=== PATIENT | female | born 1950 | race Caucasian/White ===

== ENCOUNTER 2017-08-13 19:29 | Emergency (ER) | payer MEDICARE ==
[~2017-08-13] VITALS: Ht 170.2 cm; Wt 62.2 kg
[2017-08-13 20:26] LABS: HEMOGLOBIN 12.1 g/dl (12.0-16.0); IMMATURE GRANULOCYTES 0.6 % (0.0-1.0); MEAN CORPUSCULAR HGB 32.3 pG CALC (26.0-32.0); MEAN CORPUSCULAR HGB CONC 34.6 g/L CALC (32.0-36.0); NEUT# 8.06 thou/uL (2.00-7.15); RED BLOOD COUNT 3.75 mill/uL (4.20-5.60); RED CELL DISTRI WIDTH 13.5 % (11.5-15.5)
[2017-08-13 20:27] LABS: MEAN CELL VOLUME 93.3 fL CALC (80.0-100.0)
[2017-08-13 20:28] LABS: URINE BILIRUBIN - DIPSTICK NEGATIVE (NEGATIVE); URINE BLOOD DIPSTICK LARGE (NEGATIVE); URINE COLOR YELLOW; URINE GLUCOSE - DIPSTICK NEGATIVE (NEGATIVE); URINE KETONE NEGATIVE (NEGATIVE); URINE NITRITE - DIPSTICK NEGATIVE (Negative); URINE PROTEIN - DIPSTICK TRACE mg/dL (NEG-TRACE); URINE SPECIFIC GRAVITY 1.025
[2017-08-13 20:32] LABS: URINE CLARITY SL CLOUDY; URINE LEUK ESTERASE SMALL (NEGATIVE)
[2017-08-13 20:39] LABS: URINE SQUAMOUS EPITHELIAL CELL MODERATE EPI/hpf (0-FEW)
[2017-08-13 20:41] LABS: INFLUENZA A NONE DETECTED (NONE DETECT); INFLUENZA B NONE DETECTED (NONE DETECT)
[2017-08-13 20:45] LABS: ALBUMIN 3.8 g/dL (3.2-5.0); ALKALINE PHOSPHATASE 66 u/l (38-126); ANION GAP 18 (6-22 (CALC)); BILIRUBIN, TOTAL 0.7 mg/dL (0.0-1.4); BUN 19 mg/dL (8-23); BUN/CREATININE RATIO 26 (12-20 (CALC)); CARBON DIOXIDE 27 mmol/l (22-30); CHLORIDE 101 mmol/l (95-108); CREATININE 0.7 mg/dL (0.5-1.0); GFR > 60 ML/MIN (>=60 (CALC)); GFR FOR AFR.AMER. > 60 ML/MIN (>=60 (CALC)); MAGNESIUM 1.7 mg/dL (1.6-2.3); POTASSIUM 3.6 mmol/l (3.5-5.1); SGOT/AST 31 u/l (9-36); SGPT/ALT 30 u/l (11-66); SODIUM 143 mmol/l (137-146); TOTAL PROTEIN 6.9 g/dL (6.3-8.2)
[2017-08-13 21:16] LABS: PROTHROMBIN TIME 10.7 SECONDS (9.0-12.5)
[2017-08-13] MEDS ORDERED: SUMATRIPTAN25 MG PO (21:25)
[2017-08-13] MEDS ORDERED: ATORVASTATIN CA20 MG PO (21:28)
[2017-08-13] MEDS ORDERED: METOPROL TAR25 MG PO (21:28)
[2017-08-13] MEDS ORDERED: LOSARTAN/HCT1 TA2 PO (21:34)
[2017-08-14 01:12] VITALS: BP 138/76
== END 2017-08-14 01:10 | disposition short-term general hospital (02) ==
LOC: ED 19:29
PROVIDERS: Family Medicine
DX: I26.99 Other pulmonary embolism without acute cor pulmonale (principal); I82.412 Acute embolism and thrombosis of left femoral vein; I82.442 Acute embolism and thrombosis of left tibial vein; R50.9 Fever, unspecified; R53.1 Weakness; N39.0 Urinary tract infection, site not specified; I10 Essential (primary) hypertension
CPT/HCPCS: Q9967

== ENCOUNTER 2020-04-03 15:40 | Emergency (ER) | payer MEDICARE ==
[~2020-04-03] VITALS: Ht 170.2 cm; Wt 65.0 kg
[~2020-04-03 15:40] MED LIST: ATORVASTATIN CA20 MG PO; LOSARTAN/HCT1 TA2 PO; METOPROL TAR25 MG PO; SUMATRIPTAN25 MG PO
[2020-04-03 16:08] LABS: URINE BILIRUBIN - DIPSTICK NEGATIVE (NEGATIVE); URINE BLOOD DIPSTICK MODERATE (NEGATIVE); URINE COLOR YELLOW; URINE GLUCOSE - DIPSTICK NEGATIVE (NEGATIVE); URINE KETONE NEGATIVE (NEGATIVE); URINE LEUK ESTERASE NEGATIVE (NEGATIVE); URINE NITRITE - DIPSTICK NEGATIVE (Negative); URINE PROTEIN - DIPSTICK NEGATIVE (NEG-TRACE); URINE SPECIFIC GRAVITY >=1.030; URINE UROBILINOGEN - DIPSTICK 0.2 E.U./dL (0.2)
[2020-04-03 16:19] LABS: URINE SQUAMOUS EPITHELIAL CELL FEW EPI/hpf (0-FEW); URINE WBC 0-2 WBC/hpf (0-5)
[2020-04-03] MEDS ORDERED: ZOLPIDEM TART6.25 MG PO (16:30)
[2020-04-03] MEDS ORDERED: IMITREX100 MG PO (16:31)
[2020-04-03] MEDS ORDERED: METOPROLOL100 M1 PO (16:32)
[2020-04-03] MEDS ORDERED: METHENAMINE HIPP1 GM PO (16:32)
[2020-04-03] MEDS ORDERED: HYDROCHLOROT25 MG PO (16:34)
[2020-04-03] MEDS ORDERED: LOSARTAN POTAS100 MG PO (16:34)
[2020-04-03] MEDS ORDERED: PYRIDIUM200 MG PO (16:38)
[2020-04-03] MEDS ORDERED: KEFLEX500 M1 PO (16:38)
[2020-04-03] MEDS ORDERED: DIFLUCAN100 M1 PO (16:38)
[2020-04-03 16:44] VITALS: BP 178/78
== END 2020-04-03 16:44 | disposition home or self-care (01) ==
LOC: ED 15:40
DX: N30.90 Cystitis, unspecified without hematuria (principal); I10 Essential (primary) hypertension; G20 Parkinson's disease; E78.5 Hyperlipidemia, unspecified; Z87.440 Personal history of urinary (tract) infections

== ENCOUNTER 2020-04-04 12:36 | Emergency (ER) | payer MEDICARE ==
[~2020-04-04] VITALS: Ht 170.2 cm; Wt 60.0 kg
[~2020-04-04 12:36] MED LIST changes: +DIFLUCAN100 M1 PO; +HYDROCHLOROT25 MG PO; +IMITREX100 MG PO; +KEFLEX500 M1 PO; +LOSARTAN POTAS100 MG PO; +METHENAMINE HIPP1 GM PO; +METOPROLOL100 M1 PO; +PYRIDIUM200 MG PO; +ZOLPIDEM TART6.25 MG PO
[2020-04-04 13:16] VITALS: BP 178/84
== END 2020-04-04 13:16 | disposition home or self-care (01) ==
LOC: ED 12:36
DX: N30.90 Cystitis, unspecified without hematuria (principal); I10 Essential (primary) hypertension; E78.5 Hyperlipidemia, unspecified; G20 Parkinson's disease

== ENCOUNTER 2020-04-07 19:45 | Inpatient (IN) | payer MEDICARE ==
[~2020-04-07] VITALS: Ht 170.2 cm; Wt 59.5 kg
--- NOTE | 2020-04-07 20:08 | NUR ---
PT AMBULATED TO ER BED 3 FOR TRIAGE AT THIS TIME.
[2020-04-07] MEDS ORDERED: CARB/LEVO1 TA5 PO (20:38)
--- NOTE | 2020-04-07 20:45 | NUR ---
PT MOVED TO ER BED 14 AND REPORT GIVEN TO AG RN DUE TO NEEDING A MONITORED BED. CARE RELINQUISHED AT THIS TIME.
[2020-04-07 21:16] LABS: URINE BILIRUBIN - DIPSTICK NEGATIVE (NEGATIVE); URINE BLOOD DIPSTICK SMALL (NEGATIVE); URINE COLOR YELLOW; URINE GLUCOSE - DIPSTICK 100 mg/dL (NEGATIVE); URINE KETONE NEGATIVE (NEGATIVE); URINE LEUK ESTERASE NEGATIVE (NEGATIVE); URINE PROTEIN - DIPSTICK TRACE mg/dL (NEG-TRACE)
[2020-04-07 21:18] LABS: URINE NITRITE - DIPSTICK POSITIVE (Negative)
[2020-04-07 21:28] LABS: URINE SQUAMOUS EPITHELIAL CELL FEW EPI/hpf (0-FEW); URINE WBC 0-2 WBC/hpf (0-5)
[2020-04-07 21:30] LABS: IMMATURE GRANULOCYTES 0.6 % (0.0-5.0); MEAN CELL VOLUME 91.4 fL CALC (80.0-100.0); MEAN CORPUSCULAR HGB 30.5 pG CALC (26.0-32.0); MEAN CORPUSCULAR HGB CONC 33.3 g/dL CAL (32.0-36.0); NEUT# 5.65 thou/uL (2.00-7.15); RED BLOOD COUNT 4.66 mill/uL (4.20-5.60); RED CELL DISTRI WIDTH 13.5 % (11.5-15.5)
[2020-04-07 21:35] LABS: HEMATOCRIT 42.6 % (37.0-47.0); HEMOGLOBIN 14.2 g/dl (12.0-16.0)
[2020-04-07 21:47] LABS: ALKALINE PHOSPHATASE 55 u/l (38-126); AMYLASE 171 u/l (30-110); ANION GAP 12 (6-22 (CALC)); BILIRUBIN, TOTAL 0.9 mg/dL (0.0-1.4); BUN 18 mg/dL (8-23); BUN/CREATININE RATIO 23 (12-20 (CALC)); CARBON DIOXIDE 29 mmol/l (22-30); CHLORIDE 104 mmol/l (95-108); CREATININE 0.8 mg/dL (0.5-1.0); GFR > 60 ML/MIN (>=60 (CALC)); GFR FOR AFR.AMER. > 60 ML/MIN (>=60 (CALC)); LIPASE 1156 u/l (23-300); POTASSIUM 3.8 mmol/l (3.5-5.1); SGOT/AST 21 u/l (9-36); SODIUM 141 mmol/l (137-146); TOTAL PROTEIN 7.7 g/dL (6.3-8.2)
[2020-04-07 21:49] LABS: ALBUMIN 4.8 g/dL (3.2-5.0)
--- NOTE | 2020-04-07 21:49 | NUR ---
REMEDICATED FOR BURNING PELVIC LO ABD PAIN THEN PT URGENTLY UP TO RR TO VOID
--- NOTE | 2020-04-07 23:29 | NUR ---
PT HAS URINARYT URGENCY UP TO RR TO VOID
--- NOTE | 2020-04-08 00:19 | NUR ---
PT REMEDICAATED FOR PAIN BURNING TYPE BEFORE UNCHANGED NO N/V W/P/D SKIN
--- NOTE | 2020-04-08 01:20 | NUR ---
PHONE REPORT TO NURSE AMEZCUA ON MS
--- NOTE | 2020-04-08 01:25 | NUR ---
PT TRANSPORTTE TO MS RM 1260 VIA WC IN STABLE CONDITION
--- NOTE | 2020-04-08 01:30 | NUR ---
PT ARRIVED TO MED SURG UNIT VIA WC ACCOMPANIED BY ED NURSE. PT APPEARS TO BE IN STABLE CONDITION AT THIS TIME. AIDE IS IN WITH PT AT THIS TIME OBTAINING V/S AND ORIENTING HER TO THE ROOM.
[2020-04-08 01:36] VITALS: BP 195/86
--- NOTE | 2020-04-08 01:59 | NUR ---
PT IS IN BED, POC DISCUSSED WITH HER, SHE VERBALIZED UNDERSTANDING. INFORMED PT THAT SHE IS NPO AND DISCUSSED WHY, PROVIDED HER WITH MOUTH SWABS FOR MOISTURE. PT REPORTS PAIN IS BETTER THAN WHEN SHE CAME IN. OFFERED BSC FOR CONVENIENCE WITH FREQUENT URINATION, DENIED STATING SHE WOULD RATHER AMBULATE TO RESTROOM. PT DENIES DIZZINESS, SOB, RECENT FALLS AND APPEARS STEADY ON HER FEET. ORIENTED HER TO CALL LIGHT, TV AND BED.
--- NOTE | 2020-04-08 03:43 | NUR ---
PT CALLED ASKING FOR MORE MOUTH SWABS FOR MOISTURE. IVF RUNNING @125 PER ORDERS/SITE APPEARS HEALTHY. PT REPORTS NOT BEING ABLE TO SLEEP AND ASKS FOR SLEEP AIDE, I EXPLAIN THAT WE DO NOT GIVE THEM THIS LATE THROUGH THE NIGHT. LIGHTS AND TV ARE ON. I OFFER TO TURN THE LIGHTS DOWN/REFUSES. SHE REPORTS HAVING PRESSURE IN BLADDER AREA, I OFFER WARM COMPRESS FOR COMFORT, DENIES. V/S ASSESSED AT THIS TIME. 300CC OF CLOUDY URINE WITH SEDIMENT EMPTIED AT THIS TIME.
[2020-04-08 03:45] VITALS: BP 161/72
[2020-04-08 05:31] LABS: ALKALINE PHOSPHATASE 44 u/l (38-126); ANION GAP 8 (6-22 (CALC)); BILIRUBIN, TOTAL 0.8 mg/dL (0.0-1.4); BUN 17 mg/dL (8-23); BUN/CREATININE RATIO 19 (12-20 (CALC)); CARBON DIOXIDE 29 mmol/l (22-30); CHLORIDE 106 mmol/l (95-108); CREATININE 0.9 mg/dL (0.5-1.0); GFR > 60 ML/MIN (>=60 (CALC)); GFR FOR AFR.AMER. > 60 ML/MIN (>=60 (CALC)); POTASSIUM 4.1 mmol/l (3.5-5.1); SGOT/AST 19 u/l (9-36); SODIUM 139 mmol/l (137-146); TOTAL PROTEIN 6.6 g/dL (6.3-8.2)
--- NOTE | 2020-04-08 05:42 | NUR ---
PT MEDICATED FOR PAIN IN BLADDER AREA AND 200CC OF ORANGE URINE EMPTIED FROM COMMODE. LIP BALM PROVIDED AND MOUTH SWABS FOR COMFORT. WARMER BLANKET PROVIDED. AIR IN ROOM DOES NOT SEEM TO BE WORKING, WILL REPORT TO MAINTENANCE.
--- NOTE | 2020-04-08 07:00 | NUR ---
SHIFT CHANGE REPORT, PT AWAKE ALERT AND ORIENTED, C/O PRESSURE PAIN TO ABD @ 10/10 STATING MED GIVEN EARLIER HELPED FOR A SHORT WHILE, WARM COMPRESS APPLIED, IVF INFUSING, CALL REINOSO IN REACH, WILL CONTINUE TO MONITOR.
[2020-04-08 07:24] VITALS: BP 147/76
--- NOTE | 2020-04-08 12:00 | NUR ---
MEDICAL TEAM ROUNDED AND DISCUSSED PLAN OF CARE, PT C/O INTERMITTENT PAIN TO LOWER ABD, ORDERS WRITTEN, WILL CONTINUE TO MONITOR
--- NOTE | 2020-04-08 14:00 | NUR ---
BLADDER SCANNED POST VOID = 0 ML
[2020-04-08 15:05] VITALS: BP 115/56
--- NOTE | 2020-04-08 16:00 | NUR ---
RESIING IN BED, STATES HER ABD PAIN IS NOT BEING RELIEVED MUCH, WARM COMPRESS APPLIED TO ABD WHICH GIVES SOME RELIEF.
--- NOTE | 2020-04-08 17:45 | NUR ---
PT C/O SHE WANTS SOMETHING STRONGER THAN HER ORDERED PAIN MED ITS NOT HELPING HER, MD NOTIFIED AND GAVE ORDERS.
--- NOTE | 2020-04-08 19:37 | NUR ---
PATIENT RESTING IN BED AT THIS TIME-AWAKE ALERT AND ORIENTEDX3. PATIENT C/O SEVERE PELVIC/ABD PAIN/PRESSURE 8/10 ON PAIN SCALE. PATIENT STATES LITTLE OR NO RELIEF FROM MORPHINE. MEDICATED WITH LORTAB 5/325MG PO FOR 8/10 PAIN. IVF NS PATENT AND INFUSING VIA LAC SITE. SITE APPEARS HEALTHY AT THIS TIME. SAFETY PRECAUTIONS REINFORCED. CALL LIGHT IN REACH. WILL CONT TO MONITOR.
[2020-04-08 20:00] VITALS: BP 159/68
--- NOTE | 2020-04-08 21:41 | NUR ---
PATIENT RESTING IN BED. WAS UP TO THE BR TO VOID 250CC OF ORANGE URINE-PATIENT IS ON PYRIDIUM. MEDICATED WITH BENTYL 20MG PO FOR BLADDER SPASMS. IVF PATENT AND INFJUSING VIA LAC ORDERED. CALL LIGHT IN REACH. WILL CONT TO MONITOR.
--- NOTE | 2020-04-08 23:55 | NUR ---
PATIENT RESTING QUIETLY AT THIS TIME-ZOSYN HUNG ORDERED. PATIENT STATES THAT SHE IS FEELING A LITTLE BETTER. CALL LIGHT IN REACH. WILL CONT TO MONITOR.
--- NOTE | 2020-04-09 03:29 | NUR ---
PATIENT RESTING IN BED AT THIS TIME-APPEARS SLEEPING WITH EYES CLOSED. RESPS ARE EVEN AND UNLABORED. IVF NS PATENT AND INFUSING AT 50CC/HR VIA LAC SITE. CALL LIGHT IN REACH. WILL CONT TO MONITOR.
[2020-04-09 04:00] VITALS: BP 131/71
--- NOTE | 2020-04-09 04:57 | NUR ---
PATIENT APPEARS SLEEPING AT THIS TIME-POSITIONED ON LEFT SIDE WITH EYES CLOSED. RESPS ARE EVEN AND UNLABORED. IVF PATENT AND INFUSING VIA LAC SITE AT 50CC/HR. SITE IS HEALTHY. CALL LIGHT IN REACH. WILL CONT TO MONITOR.
[2020-04-09 05:12] LABS: AMYLASE 222 u/l (30-110); LIPASE 1164 u/l (23-300)
--- NOTE | 2020-04-09 05:46 | NUR ---
PATIENT STATES THAT SHE IS FEELING BETTER THAN LAST NIGHT BUT IS STARTING TO HAVE PELVIC/ABD PAIN AGAIN. MEDICATED WITH LORTAB 5/325MG AND BENTYL 20MG PO. IV ZOSYN HUNG ORDERED. IV SITE TO LAC REMAINS HEALTHY. CONT TO VOID ORANGE URINE IN BR. CALL LIGHT IN REACH. WILL CONT TO MONITOR.
[2020-04-09 07:46] VITALS: BP 113/71
--- NOTE | 2020-04-09 07:46 | NUR ---
PT RESTING IN BED, NO SIGNS OF DISTRESS NOTED, RESP EVEN AND UNLABORED. PT ALERT AND ORIENTED X3, DISCUSSED POC, PT EATING HER BREAKFAST, TOLERATING WELL. PT STATES SHE IS READY TO GO HOME, ASSESSMENT COMPLETED, CALL LIGHT IN REACH,CONTINUE TO MONITOR.
--- NOTE | 2020-04-09 08:57 | NUR ---
ARRIVED TO ER ENTRANCE DEMANDING TO VISIT PATIENT; NO VISITOR POLICY EXPLAINED BY SCREENER. MJ MANZANARES THAT HE BE ALLOWED VISITATION; WAX ENGRAVER NOTIFIED. BEFORE WAX ENGRAVER ARRIVED TO ER VISITOR WENT TO MEDSURG UNIT WITHOUT AUTHORIZATION. UPON ENTERING ROOM 260 WAS AT BEDSIDE ALONG WITH DR. MCCARTY AND BOBBY. REMINDED OF NO VISITOR POLICY AND ASKED TO LEAVE BEDSIDE DUE TO STRICT SAFETY POLICY. MD REQUESTED EXCEPTION BE MADE FOR SPOUSE. LIABILITY WAIVER SIGNED BY AND HE REMAINS AT BEDSIDE; INSTRUCTED TO NOT LEAVE ROOM UNTIL HE DECIDES TO LEAVE HOSPITAL.
--- NOTE | 2020-04-09 13:12 | NUR ---
PT RESTING IN BED, C/O BLADDER PRESSURE, PT STATES SHE HAS VOIDED, MEDICATED FOR PAIN. CALL LIGHT IN REACH, CONTINUE TO MONITOR.
[2020-04-09 15:13] VITALS: BP 91/51
--- NOTE | 2020-04-09 16:32 | NUR ---
PT MEDICATED PER MAR, PT VOICES NO NEEDS OR COMPLAINTS AT THIS TIME,CALL LIGHT IN REACH,CONTINUE TO MONITOR.
--- NOTE | 2020-04-09 17:58 | NUR ---
PT RESTING IN BED, C/O HEADACHE, PT MEDICATED PER JUN. CALL LIGHT IN REACH,CONTINUE TO MONITOR.
--- NOTE | 2020-04-09 19:58 | NUR ---
ASSESSMENT COMPLETED. NO DISTRESS NOTED;DENIES NEEDS/PAIN AT THIS TIME. ENCOURAGED TO CALL FOR ANY NEEDS. CALL LIGHT IS IN REACH.
[2020-04-09 20:00] VITALS: BP 97/57
[2020-04-09 20:42] VITALS: BP 102/70
--- NOTE | 2020-04-09 20:45 | NUR ---
PT. MEDICATED WITH ORDERED PRN BENTYL AND SONATA PER ORDER AND PER PT'S REQUEST;MANUAL B/P 102/70 WITH RADIAL HR OF 62; PO FLUIDS OFFERED; SCHED MEDS GIVEN. CALL LIGHT IS IN REACH.
[2020-04-09 23:29] VITALS: BP 133/56
--- NOTE | 2020-04-09 23:29 | NUR ---
SCHED MED GIVEN; SEE EMAR. VSS. IV SITE APPEARS HEALTHY WITH NO REDNESS NOTED. DENIES NEEDS/PAIN. ENCOURAGED TO CALL FOR ANY NEEDS.
--- NOTE | 2020-04-10 03:30 | NUR ---
RESTING IN BED WITH EYES CLOSED; NO DISTRESS NOTED; CALL LIGHT IS IN REACH.
[2020-04-10 04:00] VITALS: BP 139/70
--- NOTE | 2020-04-10 05:09 | NUR ---
PT. C/O MIGRAINE AND DECLINES PAIN MEDS , BUT WILL TAKE COLD PACK OFFERED; PROVIDED AT THIS TIME AND APPLIED TO FOREHEAD.
[2020-04-10 07:23] VITALS: BP 158/72
--- NOTE | 2020-04-10 07:23 | NUR ---
PT RESTING IN BED, NO SIGNS OF DISTRESS NOTED, RESP EVEN AND UNLABORED. PT C/O HEADACHE, MEDICATED PER MAR. VSS, DISCUSSED POC, PT EAGER TO BE DISCHARGED. ASSESSMENT COMPLETED, CALL LIGHT IN REACH,CONTINUE TO MONITOR.
[2020-04-10 07:27] VITALS: BP 158/72
--- NOTE | 2020-04-10 08:55 | NUR ---
PT C/O MIGRAINE, FEELS NAUSEOUS, PT MEDICATED WITH ZOFRAN AWAITING NEW ORDERS. COLD COMPRESS GIVEN, ROOM DARKENED. CALL LIGHT IN REACH,CONTINUE TO MONITOR.
[2020-04-10 08:56] LABS: AMYLASE 91 u/l (30-110); ANION GAP 7 (6-22 (CALC)); BUN 11 mg/dL (8-23); BUN/CREATININE RATIO 14 (12-20 (CALC)); CARBON DIOXIDE 27 mmol/l (22-30); CHLORIDE 111 mmol/l (95-108); CREATININE 0.8 mg/dL (0.5-1.0); GFR > 60 ML/MIN (>=60 (CALC)); GFR FOR AFR.AMER. > 60 ML/MIN (>=60 (CALC)); LIPASE 293 u/l (23-300); POTASSIUM 3.9 mmol/l (3.5-5.1); SODIUM 141 mmol/l (137-146)
[2020-04-10] MEDS ORDERED: DICYCLOMINE20 MG PO (10:26)
--- NOTE | 2020-04-10 11:38 | NUR ---
DISCUSSED DISCHARGE INSTRUCTIONS WITH PT, IV SITE REMOVED, CATHETER INTACT. CALL LIGHT IN REACH,CONTINUE TO MONITOR.
--- NOTE | 2020-04-10 11:45 | NUR ---
Discharge instructions given. Patient verbalizes understanding of same. Discharged in stable condition via Wheelchair to Home with spouse. All belongings sent with pt.
== END 2020-04-10 11:45 | disposition home or self-care (01) | DRG 689 ==
LOC: ED 19:45 → ED-I 23:27 → ED 23:46 → MS2 23:47
PROVIDERS: Emergency Medicine; Nurse Practitioner Family; ADMIT Internal Medicine; ATTEND Internal Medicine
DX: N39.0 Urinary tract infection, site not specified (principal); K85.90 Acute pancreatitis without necrosis or infection, unspecified; N32.89 Other specified disorders of bladder; G20 Parkinson's disease; I10 Essential (primary) hypertension; E78.5 Hyperlipidemia, unspecified; G43.909 Migraine, unspecified, not intractable, without status migrainosus; Z79.899 Other long term (current) drug therapy; Z87.440 Personal history of urinary (tract) infections
CPT/HCPCS: G0378; Q9967

== ENCOUNTER 2021-09-17 16:41 | Emergency (ER) | payer MEDICARE ==
[~2021-09-17] VITALS: Ht 170.2 cm; Wt 64.1 kg
[~2021-09-17 16:41] MED LIST changes: +CARB/LEVO1 TA5 PO; +DICYCLOMINE20 MG PO
[2021-09-17 17:07] VITALS: BP 198/87
[2021-09-17 17:19] VITALS: BP 170/69
[2021-09-17 18:02] LABS: HEMATOCRIT 42.2 % (37.0-47.0); HEMOGLOBIN 14.1 g/dl (12.0-16.0); IMMATURE GRANULOCYTES 0.2 % (0.0-5.0); MEAN CELL VOLUME 91.1 fL CALC (80.0-100.0); MEAN CORPUSCULAR HGB 30.5 pG CALC (26.0-32.0); MEAN CORPUSCULAR HGB CONC 33.4 g/dL CAL (32.0-36.0); NEUT# 6.16 thou/uL (2.00-7.15); RED BLOOD COUNT 4.63 mill/uL (4.20-5.60); RED CELL DISTRI WIDTH 14.3 % (11.5-15.5)
[2021-09-17 18:19] LABS: ALBUMIN 4.3 g/dL (3.2-5.0); ANION GAP 13 (6-22 (CALC)); BILIRUBIN, TOTAL 1.1 mg/dL (0.0-1.4); BUN 16 mg/dL (8-23); BUN/CREATININE RATIO 18 (12-20 (CALC)); CARBON DIOXIDE 25 mmol/l (22-30); CHLORIDE 108 mmol/l (95-108); CREATININE 0.9 mg/dL (0.5-1.0); GFR FOR AFR.AMER. > 60 ML/MIN (>=60 (CALC)); GFR OTHER RACES > 60 ML/MIN (>=60 (CALC)); LIPASE 94 u/l (23-300); POTASSIUM 3.5 mmol/l (3.5-5.1); SGOT/AST 17 u/l (9-36); SODIUM 142 mmol/l (137-146); TOTAL PROTEIN 7.4 g/dL (6.3-8.2)
[2021-09-17 18:20] LABS: ALKALINE PHOSPHATASE 75 u/l (38-126)
[2021-09-17 18:54] LABS: URINE BILIRUBIN - DIPSTICK NEGATIVE (NEGATIVE); URINE BLOOD DIPSTICK MODERATE (NEGATIVE); URINE COLOR YELLOW; URINE GLUCOSE - DIPSTICK NEGATIVE (NEGATIVE); URINE KETONE NEGATIVE (NEGATIVE); URINE PH 6.5 (4.5-8.0); URINE PROTEIN - DIPSTICK 30 mg/dL (NEG-TRACE); URINE UROBILINOGEN - DIPSTICK 0.2 E.U./dL (0.2)
[2021-09-17 18:58] LABS: URINE LEUK ESTERASE LARGE (NEGATIVE); URINE NITRITE - DIPSTICK POSITIVE (Negative)
[2021-09-17 19:02] LABS: URINE BACTERIA MODERATE hpf; URINE SQUAMOUS EPITHELIAL CELL FEW EPI/hpf (0-FEW); URINE WBC >100 WBC/hpf (0-5)
[2021-09-17] MEDS ORDERED: BACTRIM DS1 TAB PO (19:16)
== END 2021-09-17 19:36 | disposition home or self-care (01) ==
LOC: ED 16:41
PROVIDERS: Family Medicine
DX: N39.0 Urinary tract infection, site not specified (principal); B96.20 Unspecified Escherichia coli [E. coli] as the cause of diseases classified elsewhere; G20 Parkinson's disease; Z87.440 Personal history of urinary (tract) infections

== ENCOUNTER 2021-09-24 17:02 | Emergency (ER) | payer MEDICARE ==
[~2021-09-24] VITALS: Ht 170.2 cm; Wt 64.0 kg
[~2021-09-24 17:02] MED LIST changes: +BACTRIM DS1 TAB PO
[2021-09-24 17:29] VITALS: BP 191/95
[2021-09-24] MEDS ORDERED: MYRBETRIQ25 MG PO (17:34)
[2021-09-24] MEDS ORDERED: VITAMIN D PO (17:35)
[2021-09-24] MEDS ORDERED: VITAMIN C + PO (17:35)
[2021-09-24 18:34] LABS: HEMATOCRIT 41.4 % (37.0-47.0); HEMOGLOBIN 13.8 g/dl (12.0-16.0); IMMATURE GRANULOCYTES 0.4 % (0.0-5.0); MEAN CORPUSCULAR HGB 30.7 pG CALC (26.0-32.0); MEAN CORPUSCULAR HGB CONC 33.3 g/dL CAL (32.0-36.0); NEUT# 4.11 thou/uL (2.00-7.15); RED BLOOD COUNT 4.5 mill/uL (4.20-5.60); RED CELL DISTRI WIDTH 14.3 % (11.5-15.5)
[2021-09-24 18:43] LABS: URINE BILIRUBIN - DIPSTICK NEGATIVE (NEGATIVE); URINE BLOOD DIPSTICK NEGATIVE (NEGATIVE); URINE COLOR YELLOW; URINE GLUCOSE - DIPSTICK NEGATIVE (NEGATIVE); URINE KETONE NEGATIVE (NEGATIVE); URINE PROTEIN - DIPSTICK NEGATIVE (NEG-TRACE); URINE SPECIFIC GRAVITY 1.025; URINE UROBILINOGEN - DIPSTICK 0.2 E.U./dL (0.2)
[2021-09-24 18:44] LABS: URINE LEUK ESTERASE MODERATE (NEGATIVE); URINE NITRITE - DIPSTICK POSITIVE (Negative)
[2021-09-24 18:45] LABS: URINE BACTERIA FEW hpf; URINE RBC 0-2 RBC/hpf (0-5); URINE SQUAMOUS EPITHELIAL CELL FEW EPI/hpf (0-FEW)
[2021-09-24 18:50] LABS: ALBUMIN 4.2 g/dL (3.2-5.0); BILIRUBIN, TOTAL 0.7 mg/dL (0.0-1.4); CREATININE 1.1 mg/dL (0.5-1.0)
[2021-09-24] MEDS ORDERED: PYRIDIUM200 MG PO (20:25)
[2021-09-24] MEDS ORDERED: KEFLEX500 MG PO (20:25)
== END 2021-09-24 21:16 | disposition home or self-care (01) ==
LOC: ED 17:02
PROVIDERS: Family Medicine
DX: N39.0 Urinary tract infection, site not specified (principal); B96.20 Unspecified Escherichia coli [E. coli] as the cause of diseases classified elsewhere; G20 Parkinson's disease

== ENCOUNTER 2022-06-30 09:57 | Emergency (ER) | payer MEDICARE ==
[~2022-06-30] VITALS: Ht 165.1 cm; Wt 68.0 kg
[~2022-06-30 09:57] MED LIST changes: +KEFLEX500 MG PO; +MYRBETRIQ25 MG PO; +VITAMIN C + PO; +VITAMIN D PO
[2022-06-30 12:39] VITALS: BP 174/73
[2022-06-30] MEDS ORDERED: TRAMADOL HYDROC50 M1 PO (12:45)
== END 2022-06-30 12:57 | disposition home or self-care (01) ==
LOC: ED 09:57
DX: S82.002A Unspecified fracture of left patella, initial encounter for closed fracture (principal); G20 Parkinson's disease; W01.0XXA Fall on same level from slipping, tripping and stumbling without subsequent striking against object, initial encounter; Y92.009 Unspecified place in unspecified non-institutional (private) residence as the place of occurrence of the external cause; Z91.81 History of falling

== ENCOUNTER 2024-03-18 22:28 | Emergency (ER) | payer MEDICARE ==
[~2024-03-18] VITALS: Ht 165.1 cm; Wt 76.0 kg
[~2024-03-18 22:28] MED LIST changes: +TRAMADOL HYDROC50 M1 PO
[2024-03-18 23:48] VITALS: BP 159/94
[2024-03-18] MEDS ORDERED: Acetaminophen 300 MG/Codeine 30 MG/COMBO PO ONE (23:55)
[2024-03-18] MEDS ORDERED: KETOROLAC TROMETHAMINE 30 MG/ML SDV IM ONE (23:55)
[2024-03-19] VITALS: BP 146/77
[2024-03-19 00:15] VITALS: BP 171/71
[2024-03-19] MEDS ORDERED: HYDROcodone 5 MG/Acetaminophen 325 MG/COMBO PO ONE (00:15)
[2024-03-19] MEDS ORDERED: MIRALAX17 GM PO (00:27)
[2024-03-19] MEDS ORDERED: NAPROXEN375 MG PO (00:27)
[2024-03-19] MEDS ORDERED: LORTAB 5/3255 MG PO (00:27)
[2024-03-19 00:30] VITALS: BP 168/79
[2024-03-19] MEDS ORDERED: ELAVIL25 M1 PO (00:34)
[2024-03-19] MEDS ORDERED: MYRBETRIQ50 MG PO (00:36)
[2024-03-19] MEDS ORDERED: AMBIEN5 MG PO (00:37)
[2024-03-19] MEDS ORDERED: [UNRECOGNIZED DRUG - OTHER] PO (00:37)
[2024-03-19] MEDS ORDERED: CARVEDILOL12.5 MG PO (00:38)
[2024-03-19] MEDS ORDERED: FOLIC ACID1 MG PO (00:39)
[2024-03-19] MEDS ORDERED: MACRODANTIN100 MG PO (00:39)
[2024-03-19] MEDS ORDERED: VITAMIN D-32000 UNI1 PO (00:40)
[2024-03-19] MEDS ORDERED: B121000 MC1 PO (00:41)
[2024-03-19 00:45] VITALS: BP 167/83
[2024-03-19 00:53] VITALS: BP 167/83
== END 2024-03-19 00:53 | disposition home or self-care (01) ==
LOC: ED 22:28
DX: S22.42XA Multiple fractures of ribs, left side, initial encounter for closed fracture (principal); G20.A1 Parkinson's disease without dyskinesia, without mention of fluctuations; W01.198A Fall on same level from slipping, tripping and stumbling with subsequent striking against other object, initial encounter; Y92.002 Bathroom of unspecified non-institutional (private) residence as the place of occurrence of the external cause